=== PATIENT | male | born 1995 | race Caucasian/White ===

== ENCOUNTER 2016-11-13 18:30 | Emergency (ER) | payer OTHER, MEDICAID ==
[2016-11-13 18:36] VITALS: RESP 16
--- NOTE | 2016-11-13 19:12 | EDPHY ---
General - History Smoking Status: Never smoked Narrative: CHIEF COMPLAINT: Hand laceration HISTORY OF PRESENT ILLNESS: Patient was at work just prior to arrival, shucking oysters. He accidentally cut himself in the left hand. This is in the webspace between the thumb and index finger. Moderate bleeding that stopped with simple pressure. Minimal pain with pressure and movement of the thumb. No pain at rest. No difficulty bending or straightening the thumb or fingers. There is some tingling around the area of laceration. No broken glass or foreign body possibility. No other associated complaints or modifying factors. Patient thinks that tetanus is up- to-date REVIEW OF SYSTEMS: Ten systems reviewed and are negative unless otherwise noted in the HPI PCP: None SPECIALISTS: None PAST MEDICAL HISTORY: Orthopedic injuries PAST SURGICAL HISTORY: Orthopedic surgeries SOCIAL HISTORY: Nonsmoker. No alcohol. No illicit substance use. 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 Lives in [place] FAMILY HISTORY: Noncontributory EXAMINATION General Appearance: Alert, no distress Head: normocephalic, atraumatic Cardiovascular: Regular rate. Pulses intact distally with symmetric radial pulses 2+ Neurological: A&O, nonfocal, good strength of the interossei bilaterally. No wrist drop. Skin: Warm and dry, no rash. There is a 1.75 cm, v-shaped, jagged laceration on the left hand. This is between the left thumb and index finger in the web space. No bleeding. No foreign body. Neurovascular intact distally Extremities: Tenderness in the area of laceration. There is no bony tenderness or deformity. Range of motion of the left hand is intact and symmetric to the right. Full flexion extension of all fingers of the left hand. Good opposition, adduction and abduction of the thumb on the left hand Psychiatric: Mood and affect normal DIFFERENTIAL DIAGNOSES: Including but not limited to laceration, complex laceration, laceration with tendon injury. MDM: 7:10 p.m. Laceration to the left hand between the thumb and index finger web space. No pulsatile bleeding. No foreign body. Neuro intact. Area has been anesthetized. Proceed with irrigation closure. Tetanus is up-to-date. 7:45 p.m. Laceration that has been repaired without complication. Tolerated well. He is neuro intact pre and postprocedure. Wound care discussed. Augmentin prophylaxis. He has instructions to follow up with his worker's compensation Clinic. He has ED precautions for worsening pain, infection, changes in neurovascular status. He is discharged in stable condition, neurovascular intact. PROCEDURE: Laceration repair Consent: Verbal Location: Left hand, webspace between the thumb and index finger Length of repair: 1.75 cm Complexity: Complex due to location Layer involvement: Single Anesthesia: Local. 1% lidocaine without epinephrine. 5 mL Irrigation: Extensive Debridement: None Procedure description: Following good anesthesia, the wound was copiously irrigated. Wound bed was explored and there is no foreign body noted. Wound borders were approximated well with good hemostasis. Tolerated well without complication. Suture/Staple material: 5-0 Prolene. Two simple interrupted sutures Wound care: Routine as discussed Suture/Staple removal: 7-10 Days (Luis Casey) Discussion: The patient was evaluated and managed by the Physician Pressurised Container Filler/ Nurse Practitioner. My co-signature indicates that I have reviewed this chart and I agree with the findings and plan of care as documented. I am the secondary supervising physician. (Nathalie Parisi) - Objective Vital Signs: Initial Vital Signs Temperature (C) 36.8 C 11/13/16 18:34 Heart Rate 65 11/13/16 18:34 Respiratory Rate 16 11/13/16 18:34 Blood Pressure 111/79 11/13/16 18:34 O2 Sat (%) 98 11/13/16 18:34 O2 Delivery Mode Room Air Allergies/Adverse Reactions: Sulfa (Sulfonamide Antibiotics) Allergy (Verified 11/13/16 18:33) Home Medications: Medication Instructions Recorded Amoxicillin/Clavulanate Pot 875 mg PO BID #14 tab 11/13/16 [Augmentin 875 MG TAB (*)] Medications Given: Discontinued Medications Amoxicillin/Clavulanate Potassium (Augmentin 875mg) 875 mg PO EDNOW ONE PRN Reason: Protocol Stop: 11/13/16 19:34 Last Admin: 11/13/16 19:46 Dose: 875 mg Departure - Departure Disposition: Home, Routine, Self-Care Clinical Impression: Laceration of hand, left Condition: Good Instructions: Care For Your Stitches (ED), Laceration (ED) Additional Instructions: 1. Daily wound care as discussed 2. Daily activities as discussed 3. Follow up with your worker's compensation Clinic 4. Follow up at her worker's compensation Clinic or here in 7-10 days for suture removal Referrals: NONE *PRIMARY CARE P,. [Primary Care Provider] - As per Instructions Aliya Olguin DO [Doctor of Osteopathy] - As per Instructions Stand Alone Forms: Work Comp Follow Up Prescriptions: Amoxicillin/Clavulanate Pot [Augmentin 875 MG TAB (*)] 875 mg PO BID #14 tab
[2016-11-13] MEDS: AMOXICILLIN/CLAVULANATE POT 875/125 MG TAB PO ONE (19:46)
[2016-11-13 20:04] VITALS: BP 124/80; PULSE 51; TEMP 97.7; O2SAT 97
== END 2016-11-13 20:02 | disposition home or self-care (01) ==
PROC: 0HQGXZZ Repair Left Hand Skin, External Approach (ICD-10-PCS; principal; 2016-11-13)
DX: S61.412A Laceration without foreign body of left hand, initial encounter (principal); W45.8XXA Other foreign body or object entering through skin, initial encounter; Y92.69 Other specified industrial and construction area as the place of occurrence of the external cause; Y99.0 Civilian activity done for income or pay; Y93.89 Activity, other specified